=== PATIENT | male | born 1980 | race African-American/Black ===

== ENCOUNTER 2021-07-14 21:47 | Emergency (ER) | payer OTHER ==
[2021-07-14] MEDS ORDERED: Boostrix 0.5 ML (Tdap) VIAL ONE (22:27)
[2021-07-14] MEDS ORDERED: Ibuprofen 200 MG TAB ONE (23:23)
== END 2021-07-15 00:36 | disposition still patient (30) ==
LOC: NAV ERS 21:47
DX: S02.2XXA Fracture of nasal bones, initial encounter for closed fracture (principal); S83.91XA Sprain of unspecified site of right knee, initial encounter; S03.01XA Dislocation of jaw, right side, initial encounter; S05.11XA Contusion of eyeball and orbital tissues, right eye, initial encounter; I12.9 Hypertensive chronic kidney disease with stage 1 through stage 4 chronic kidney disease, or unspecified chronic kidney disease; N18.9 Chronic kidney disease, unspecified; G35 Multiple sclerosis; E78.5 Hyperlipidemia, unspecified; Z79.899 Other long term (current) drug therapy; W18.2XXA Fall in (into) shower or empty bathtub, initial encounter
CPT/HCPCS: 70450; 70486; 72125; 90471; 90715